=== PATIENT | female | born 1985 | race Caucasian/White ===

== ENCOUNTER 2021-01-28 05:19 | Emergency (ER) | payer OTHER ==
[~2021-01-28] VITALS: Ht 157.5 cm; Wt 59.9 kg
--- NOTE | 2021-01-28 05:58 | NUR ---
BIB[facility]LA[facility] FROM HOME C/O NAUSEA, EPIGASTRIC PAIN RADIATING TO THROAT "BURNING LIKE" PT STATED THAT SHE IS 5 WEEKS , SHE SAID THAT SHE SAW PINK TINGE MUCUS ON HER VAGINA, PT IS AA/O X4, AMBULATORY SHE STATED THAT IT IS HER 2ND NO OR STILL , PT BREATHING IS EVEN AND UNLABORED HOOKED TO MONITOR AND SPOX WILL CONT TO MONITOR
--- NOTE | 2021-01-28 06:05 | NUR ---
MRI MANAGER AT BEDSIDE BLOOD DRAW DONE
[2021-01-28 06:09] LABS: BASOPHILS # (AUTO) 0.1 /CMM (0.0-0.2); BASOPHILS % (AUTO) 0.6 % (0.0-2.0); EOSINOPHILS % (AUTO) 0.7 % (0.0-6.0); HEMATOCRIT 44 % (33-45); HEMOGLOBIN 14.8 g/dL (11.5-14.8); LYMPHOCYTES # (AUTO) 1.7 /CMM (0.8-4.8); LYMPHOCYTES % (AUTO) 15.1 % (20.0-44.0); MEAN CORPUSCULAR HGB CONC 34 g/dl (31.0-36.0); MEAN CORPUSCULAR VOLUME 94 fL (82-100); MONOCYTES # (AUTO) 0.7 /CMM (0.1-1.30); MONOCYTES % (AUTO) 6.2 % (2.0-12.0); NEUTROPHILS # (AUTO) 8.8 /CMM (1.8-8.9); NEUTROPHILS % (AUTO) 77.4 % (43.0-81.0); PLATELET COUNT (AUTO) 293 /CMM (150-450); RED BLOOD CELL COUNT(AUTO) 4.73 MIL/uL (4.0-5.2); WHITE BLOOD COUNT (AUTO) 11.4 K/uL (4.3-11.0)
[2021-01-28 06:12] LABS: BILIRUBIN,URINE NEGATIVE (NEGATIVE); COLOR,URINE YELLOW (YELLOW); LEUKOCYTE ESTERASE ,URINE SMALL (NEGATIVE); NITRITE, URINE POSITIVE (NEGATIVE); PH,URINE 6.5 (5.0-8.0); PROTEIN,URINE NEGATIVE (NEGATIVE); UGLUCOSE NEGATIVE (NEGATIVE); UROBILINOGEN,URINE 0.2 EU/dL (0.2)
[2021-01-28 06:15] LABS: CALCIUM, SERUM 9.4 mg/dL (8.5-10.1); CREATININE 0.8 mg/dL (0.6-1.3); POTASSIUM 3.2 mmol/L (3.5-5.1)
[2021-01-28 06:20] LABS: ALBUMIN 4.5 g/dL (3.4-5.0); BILIRUBIN,DIRECT 0.2 mg/dL (0.0-0.2); TOTAL PROTEIN, SERUM 8.3 g/dL (6.4-8.2)
[2021-01-28 06:21] LABS: BACTERIA,URINE Many /HPF (None Seen); RBC,URINE 0-2 /HPF (0-2); SQUAMOUS EPITHELIAL CELL,UR Few /HPF (None Seen); WBC,URINE 51-80 /HPF (0-3)
[2021-01-28] MEDS ORDERED: METOCLOPRAMIDE HCL 10 MG/2 ML VIAL ONE (06:45)
[2021-01-28] MEDS ORDERED: ACETAMINOPHEN 325 MG TABLET ONE (06:45)
--- NOTE | 2021-01-28 06:50 | NUR ---
US TECH AT BEDSIDE
[2021-01-28] MEDS ORDERED: IV NS 0.9% 1,000 ML IV ONE (07:00)
[2021-01-28] MEDS ORDERED: CEFTRIAXONE 1 G in IV D5W 50 ML IV ONE (07:00)
[2021-01-28] MEDS ORDERED: METOCLOPRAMIDE HCL 10 MG/2 ML VIAL IV ONE (07:00)
[2021-01-28] MEDS ORDERED: ACETAMINOPHEN 325 MG TABLET PO ONE (07:00)
[2021-01-28] MEDS ORDERED: CEFTRIAXONE 1GM BAG (ER ONLY) 50 ML IV ONE (07:08)
[2021-01-28] MEDS ORDERED: CEPH500C2 PO (07:18)
[2021-01-28] MEDS ORDERED: METO-295 PO (07:18)
--- NOTE | 2021-01-28 09:16 | NUR ---
Patient discharged to home in stable condition. Written and verbal after care instructions given. Patient verbalizes understanding of instruction.IV removed. Catheter intact and site benign. Pressure and 4x4 applied to site. No bleeding noted.
[2021-01-28 09:17] VITALS: BP 111/60
== END 2021-01-28 09:17 | disposition home or self-care (01) ==
LOC: ER 05:23
DX: O20.0 Threatened abortion (principal); O20.8 Other hemorrhage in early pregnancy; O21.9 Vomiting of pregnancy, unspecified; O23.41 Unspecified infection of urinary tract in pregnancy, first trimester; Z3A.01 Less than 8 weeks gestation of pregnancy
CPT/HCPCS: 36415; 76805; 80048; 80076; 81001; 84702; 84703; 85025; 87086; 96365; 96375; 99284; J0696; J2765; J7030; 87186-TC